=== PATIENT | female | born 1940 | race Caucasian/White ===

== ENCOUNTER 2019-03-09 14:02 | Emergency (ER) | payer MEDICARE, OTHER ==
[2019-03-09] MEDS ORDERED: Ondansetron 4 MG/2 ML SDV IVPUSH ONE (14:14)
[2019-03-09] MEDS ORDERED: Sodium Chloride 0.9% 10 ML Syringe FLUSH PRN (14:14)
[2019-03-09] MEDS ORDERED: Morphine 4 MG/ML Syringe IVPUSH ONE ×2 (14:14→15:09)
[2019-03-09] MEDS ORDERED: Sodium Chloride 0.9% 1,000 ML IV ONE (14:16)
--- NOTE | 2019-03-09 15:11 | CT ---
[id number] CT/CT Pelvis WO IV Exam: CT Pelvis WO IV Clinical Data: DISLOCATED RIGHT HIP PROSTHESIS COMPARISON: NO PREVIOUS SIMILAR EXAM IS AVAILABLE FINDINGS: There is posterior dislocation of the femoral component of the right hip prosthesis. No fracture is seen. IMPRESSION: POSTERIOR DISLOCATION OF RIGHT HIP PROSTHESIS. Declan Mcdonald MD 03/09/19 [id number] Thank you for allowing us to participate in the care of your patient.
--- NOTE | 2019-03-09 15:21 | EDM.PDOC ---
ED HPI GENERAL MEDICAL PROBLEM - General Chief Complaint: Lower Extremity Injury/Pain Stated Complaint: right hip dislocation Time Seen by Provider: 03/09/19 14:07 Source of Information: Reports: Patient, EMS History Limitations: Reports: No Limitations - History of Present Illness INITIAL COMMENTS - FREE TEXT/NARRATIVE: Patient reports bending over at her vanity to get medications for her . In doing so she felt her right hip pop. She does have history of right hip replacement around 2009. She denies dizziness, did not pass out, did not hit her head. No nausea/vomiting, no muscle cramps, no numbness or tingling to the extremity. Full rom to all other extremities. Onset: Today, Sudden Duration: Intermittent Location: Reports: Lower Extremity, Right Quality: Reports: Sharp, Stabbing Severity: Moderate Improves with: Reports: Rest Worsens with: Reports: Movement Right Hip Pain Score (Numeric/FACES): 5 - Related Data Allergies Allergy/AdvReac Type Severity Reaction Status Date / Time No Known Drug Allergies Allergy Other Verified 03/09/19 15:33 Home Meds: Home Meds Calcium Carbonate/Vitamin D2 [Calcium with Vit D] 1 tab PO DAILY 04/08/14 [ History] Denosumab [Prolia] 1 ml [id number] 04/08/14 [History] Multivitamin [Multivitamins] 1 tab PO DAILY 04/08/14 [History] atorvaSTATin [Lipitor] 10 mg PO BEDTIME 04/08/14 [History] Aspirin 81 mg PO DAILY 03/09/19 [History] metFORMIN [Glucophage XR] 500 mg PO DAILY 03/09/19 [History] Review of Systems - Review of Systems Review Of Systems: See Below Constitutional: Reports: No Symptoms Eyes: Reports: No Symptoms Ears: Reports: No Symptoms Nose: Reports: No Symptoms Mouth/Throat: Reports: No Symptoms Respiratory: Reports: No Symptoms Cardiovascular: Reports: No Symptoms GI/Abdominal: Reports: No Symptoms Genitourinary: Reports: No Symptoms Musculoskeletal: Reports: Leg Pain (right hip pain) Skin: Reports: No Symptoms Neurological: Reports: No Symptoms Psychiatric: Reports: No Symptoms ED EXAM, GENERAL - Physical Exam Exam: See Below Exam Limited By: No Limitations General Appearance: Alert, WD/WN, Mild Distress Eye Exam: Bilateral Eye: EOMI, Normal Inspection Ears: Normal TMs Nose: Normal Inspection, Normal Mucosa, No Blood Throat/Mouth: Normal Inspection, Normal Lips, Normal Teeth, Normal Gums, Normal Oropharynx, Normal Voice, No Airway Compromise Head: Atraumatic, Normocephalic Neck: Normal Inspection, Supple, Non-Tender, Full Range of Motion Respiratory/Chest: No Respiratory Distress, Lungs Clear, Normal Breath Sounds, No Accessory Muscle Use, Chest Non-Tender Cardiovascular: Normal Peripheral Pulses, Regular Rate, Rhythm, No Edema, No Gallop, No JVD, No Murmur, No Rub Peripheral Pulses: 2+: Posterior Tibial (L), Posterior Tibial (R), Dorsalis Pedis (L), Dorsalis Pedis (R) GI/Abdominal: Normal Bowel Sounds, Soft, Non-Tender, No Organomegaly, No Distention, No Abnormal Bruit, No Mass Back Exam: Normal Inspection, Full Range of Motion, NT Extremities: Limited Range of Motion (right leg has shortening and rotation at the hip/pelvis. Any rotation of limb elicits pain) Neurological: Alert, Oriented, CN II-XII Intact, Normal Cognition Course - Vital Signs Last Recorded V/S: Last Vital Signs Temp 37.1 C 03/09/19 15:54 Pulse 73 03/09/19 15:54 Resp 16 03/09/19 15:54 BP 185/75 H 03/09/19 15:54 Pulse Ox 98 03/09/19 15:54 - Orders/Labs/Meds Orders: Active Orders 24 hr Category Date Time Status Saline Lock Insert [OM.PC] Routine Oth 03/09/19 14:14 Ordered Meds: Medications Discontinued Medications Generic Name Dose Route Start Last Admin Trade Name Iain PRN Reason Stop Dose Admin Hydromorphone HCl 1 mg 03/09/19 15:54 03/09/19 15:58 Dilaudid IVPUSH 03/09/19 15:55 1 mg ONETIME ONE Administration Sodium Chloride 1,000 mls @ 125 mls/hr 03/09/19 14:16 03/09/19 14:22 Normal Saline IV 03/09/19 22:15 125 mls/hr ONETIME ONE Administration Morphine Sulfate 4 mg 03/09/19 14:14 03/09/19 15:19 Morphine IVPUSH 03/09/19 14:15 4 mg ONETIME ONE Administration Morphine Sulfate 4 mg 03/09/19 15:09 03/09/19 14:26 Morphine IVPUSH 03/09/19 15:10 4 mg ONETIME ONE Administration Ondansetron HCl 4 mg 03/09/19 14:14 03/09/19 14:24 Zofran IVPUSH 03/09/19 14:15 4 mg ONETIME ONE Administration Sodium Chloride 10 ml 03/09/19 14:14 Saline Flush FLUSH ASDIRECTED PRN Keep Vein Open - Radiology Interpretation Free Text/Narrative:: CT scan shows posterior dislocation of the right hip prosthesis Departure - Departure Time of Disposition: 16:05 Disposition: Home, Self-Care 01 Condition: Good Clinical Impression: Posterior dislocation of right hip, initial encounter - Discharge Information *PRESCRIPTION DRUG MONITORING PROGRAM REVIEWED*: No *COPY OF PRESCRIPTION DRUG MONITORING REPORT IN PATIENT REBA: No Referrals: Mattie Streeter MD [Primary Care Provider] - Forms: ED Department Discharge, Interfacility Transfer [facility] ED Communication - ED Communication Date/Time Date: 03/09/19 Time Called: 15:23 - Discussed Case With (1) Discussed Case With (1): Admitting Provider (ED provider Dr. Dawson contacted, given report and he will accept care of patient in transfer.) - Problem List & Annotations (1) Posterior dislocation of right hip, initial encounter SNOMED Code(s): 240263661 Code(s): S73.014A - POSTERIOR DISLOCATION OF RIGHT HIP, INITIAL ENCOUNTER Status: Acute Priority: Medium - Problem List Review Problem List Initiated/Reviewed/Updated: Yes - My Orders Last 24 Hours: My Active Orders 03/09/19 14:14 Saline Lock Insert [OM.PC] Routine - Assessment/Plan Last 24 Hours: My Active Orders 03/09/19 14:14 Saline Lock Insert [OM.PC] Routine Assessment:: posterior dislocation of right hip prosthesis Plan: Transfer to [facility]
[2019-03-09] MEDS ORDERED: HYDROmorphone 1 MG/ML Syringe IVPUSH ONE (15:54)
== END 2019-03-09 16:05 | disposition home or self-care (01) ==
LOC: VM.ED 14:02
DX: S73.014A Posterior dislocation of right hip, initial encounter (principal); Z79.899 Other long term (current) drug therapy; Z79.82 Long term (current) use of aspirin; Z79.84 Long term (current) use of oral hypoglycemic drugs; X50.9XXA Other and unspecified overexertion or strenuous movements or postures, initial encounter
CPT/HCPCS: 72192; 96361; 96374; 96375; 96376; 99284; 99285; J1170; J2270; J2405; J7030

== ENCOUNTER 2020-12-01 06:17 | Day surgery (SDC) | payer MEDICARE ==
[2020-12-01] MEDS ORDERED: Lactated Ringers 1,000 ML IV SCH (07:00)
[2020-12-01] MEDS ORDERED: fentaNYL 100 MCG/2 ML SDV ONE (07:41)
[2020-12-01] MEDS ORDERED: Propofol 200 MG/20 ML SDV ONE ×2 (07:41→09:29)
[2020-12-01] MEDS ORDERED: Ondansetron 4 MG/2 ML SDV IV PRN (11:25)
[2020-12-01] MEDS ORDERED: Dexamethasone 4 MG/ML SDV IVPUSH ONE (11:25)
--- NOTE | 2020-12-01 13:31 | OR ---
PREOPERATIVE DIAGNOSIS: Positive Cologuard. POSTOPERATIVE DIAGNOSIS: Colon polyps. PROCEDURE PERFORMED: Total flexible colonoscopy with biopsies. ANESTHESIA: MAC anesthesia. COMPLICATIONS: None. BLOOD LOSS: Minimal. FINDINGS: 1. Cecal polyps x4, 1-3 mm, cold snare and cold forceps. 2. Large flat cecal polyp, unable to be endoscopically resected, tattoo placed. START TIME: 0916. CECUM TIME: 0934. STOP TIME: 1006. BOWEL PREP: Thendara class 2. INDICATIONS FOR PROCEDURE: Tawana Luna is an 80-year-old female who has had colonoscopy 10 years ago. She recently had a positive Cologuard. Notably, her Cologuard was negative 3 years ago. She is here for colonoscopy. DETAILS OF PROCEDURE: Informed consent was obtained. The patient was placed in left lateral decubitus position. MAC anesthesia was induced by Anesthesia colleagues. The colonoscope was introduced into the rectum and advanced all the way to the cecum. She did have a somewhat tortuous sigmoid, which took longer than average to traverse. The appendiceal orifice was photographed. Terminal ileum was intubated and photographed. No pathology was identified except for what is mentioned in the findings section. Notably, the large flat cecal polyp was draped over a fold. We attempted saline lift, but we could not get to lift adequately in order to attempt a complete resection. It was quite large and I was actually skeptical that we would be able to get this out, but we felt it was prudent to attempt to lift this. I did place a tattoo just distal to this polyp. Retroflexed view was obtained and the colonoscope was removed. The patient tolerated the procedure well, was awoken from anesthesia by Anesthesia colleagues without incident. PATHOLOGY: A) Colon, cecal polyps, polypectomy Tubular adenomata. B) Colon, cecum, large polyp biopsy Tubulovillous adenoma. Recommendations: I discussed the pathology report with this patient over the phone. I discussed that she had a large cecal polyp which was not amenable to endoscopic resection. I offered her 2 choices. First, a referral to GI for an attempt at endoscopic resection. I discussed that they have greater expertise which may allow them to successfully remove that polyp. Second, I offered her surgical excision of that portion of her colon which would be a right hemicolectomy. I expect this could be done laparoscopically. She was undecided on what she wanted to do. She would like some time to think about it. I will have my office reach out to her tomorrow and make sure she has all the necessary information to contact me with her decision. I would be happy to see her in clinic for right hemicolectomy or place a referral for a second attempt at endoscopic resection by a GI specialist. RKM: 12/01/2020 10:24:45 MODL: 12/01/2020 10:52:01 /[id number] MTDSalvatore
--- NOTE | 2020-12-07 08:44 | LETTER ---
12/06/2020 Ms. Tawana Bennett [id number] [place] [id number] RE: TAWANA BENNETT HELIO : 1940 Dear Ms. Luna: I am writing to inform you of the pathology report of your recent colonoscopy. You had 4 tubular adenomas removed. A tubular adenoma is a polyp, which is considered precancerous, but does not contain cancer. We removed them to prevent the development of cancer cells. You also had a large polyp in your cecum, which was not amenable to endoscopic resection. As we discussed over the phone, this can be removed with surgery by removing the right-sided portion of your colon. The other option would be a referral to a GI specialist in [place], who may be able to get that polyp removed with the colonoscope. You indicated that you are undecided and I will await your decision and help to facilitate whichever you should choose. Warmest regards,
== END 2020-12-01 13:04 | disposition home or self-care (01) ==
LOC: VM.SDS 06:17
PROVIDERS: ATTEND Student in an Organized Health Care Education/Training Program
DX: D12.0 Benign neoplasm of cecum (principal); I25.10 Atherosclerotic heart disease of native coronary artery without angina pectoris; I10 Essential (primary) hypertension; E11.9 Type 2 diabetes mellitus without complications; M81.0 Age-related osteoporosis without current pathological fracture; E78.5 Hyperlipidemia, unspecified; E66.3 Overweight; Z79.899 Other long term (current) drug therapy; Z79.84 Long term (current) use of oral hypoglycemic drugs; Z98.890 Other specified postprocedural states; Z90.49 Acquired absence of other specified parts of digestive tract; Z68.27 Body mass index [BMI] 27.0-27.9, adult; Z20.822 Contact with and (suspected) exposure to COVID-19
CPT/HCPCS: 00812; 82947; 88305; J1100; J1790; J2405; J2704; J3010; J7120; U0002

== ENCOUNTER 2024-12-19 14:17 | Emergency (ER) | payer MEDICARE ==
[2024-12-19] MEDS: Ondansetron 4 MG/2 ML SDV IVPUSH ONE (15:50)
[2024-12-19] MEDS: Morphine 2 MG/ML SYRINGE IVPUSH ONE (15:50)
== END 2024-12-19 16:18 | disposition short-term general hospital (02) ==
LOC: VM.ED 14:17
DX: S72.002A Fracture of unspecified part of neck of left femur, initial encounter for closed fracture (principal); I10 Essential (primary) hypertension; I25.10 Atherosclerotic heart disease of native coronary artery without angina pectoris; E78.00 Pure hypercholesterolemia, unspecified; E11.9 Type 2 diabetes mellitus without complications; Z90.49 Acquired absence of other specified parts of digestive tract; Z79.82 Long term (current) use of aspirin; Z79.84 Long term (current) use of oral hypoglycemic drugs; W19.XXXA Unspecified fall, initial encounter
CPT/HCPCS: 96374; 96375; 99285-25; J2270; J2405